=== PATIENT | female | born 1930 | race Caucasian/White ===

== ENCOUNTER 2016-10-15 13:23 | Inpatient (IN) | payer MEDICARE, OTHER, MEDICAID ==
[~2016-10-15] VITALS: Ht 157.5 cm; Wt 63.0 kg
[~2016-10-15 13:23] MED LIST: ACETAMINOPHEN325 MG PO; ARICEPT10 MG PO; AZOR 5-40 MG TA1 TAB PO; K-TAB10 MEQ PO; LASIX40 MG PO; NAMENDA10 MG PO; PLAVIX75 MG PO; PRAVACHOL40 MG PO; SEROQUEL25 MG PO; TOPROL XL100 MG PO; VESICARE5 MG PO; ZANTAC150 MG PO
[2016-10-15 16:43] LABS: BASOPHILS 0.2 % (0-2); HEMATOCRIT 32.2 % (36.0-48.0); HEMOGLOBIN 10.6 g/dL (12-16); LYMPHOCYTES 12.4 % (15-50); MCH 30.6 pg (26.0-34.0); MCHC 32.9 g/dL (31.0-37.0); MCV 93.1 fL (80.0-100.0); MEAN PLATELET VOLUME 11.5 fL (7.4-10.4); MONOCYTES 6.6 % (2-11); NEUTROPHILS 78.8 % (40-80); RBC 3.46 10x6/uL (4.00-5.40); RDW 13.1 % (11.5-14.5); WBC 11.4 10x3/uL (4.8-10.8)
[2016-10-15 16:45] LABS: PLATELET COUNT 255 10x3/uL (130-400)
[2016-10-15 16:59] LABS: ALBUMIN 2.9 g/dL (3.4-5.0); ANION GAP 18.7 mmol/L (8-16); BILIRUBIN - TOTAL 1.83 mg/dL (0.2-1.3); CARBON DIOXIDE 24.1 mmol/L (21.0-32.0); CREATININE - SERUM 2.6 mg/dL (0.6-1.3); POTASSIUM - SERUM 3.8 mmol/L (3.5-5.1); PROTEIN - SERUM 7.3 g/dL (6.4-8.2)
[2016-10-15 17:22] LABS: APPEARANCE HAZY (CLEAR); BILIRUBIN NEGATIVE (NEGATIVE); COLOR YELLOW (YELLOW); GLUCOSE NEGATIVE (NEGATIVE); KETONE NEGATIVE (NEGATIVE); LEUKOCYTE ESTERASE 1+ (NEGATIVE); NITRITE NEGATIVE (NEGATIVE); PROTEIN NEGATIVE (NEGATIVE); SPECIFIC GRAVITY 1.015 (1.005-1.020); UROBILINOGEN NORMAL (NORMAL)
[2016-10-15 17:24] LABS: BACTERIA MANY /hpf (NONE SEEN); HYALINE CAST 0-5 /lpf (NONE SEEN); RED CELLS - URINE 0-5 /hpf (0-5); WHITE CELLS - URINE 25-50 /hpf (0-5)
[2016-10-15 19:00] VITALS: BP 172/68
--- NOTE | 2016-10-15 20:30 | NUR ---
PT. ARRIVED VIA W/C WITH PIPE TESTER IN ATTENDANCE. REPORT RECEIVED. FAMILY TO STAY NIGHT WITH PT. PT. PLACED IN BED, GOWNED AND SKIN ASSESSED WITH NO ABNORMAL SKIN FINDINGS. CALL LIGHT WITHIN REACH.
[2016-10-15 22:15] VITALS: BP 172/68; BMI 25.5
[2016-10-15] MEDS ORDERED: BUMEX 1 MG TAB1 MG PO (22:49)
[2016-10-15] MEDS ORDERED: RELAFEN500 MG PO (22:50)
[2016-10-15] MEDS ORDERED: FISH OIL 1,0001 CA1 PO (22:52)
[2016-10-15] MEDS ORDERED: DESERYL100 MG PO (22:53)
[2016-10-15] MEDS ORDERED: ZOLOFT100 MG PO (22:54)
[2016-10-15] MEDS ORDERED: ACETAMINOPHEN325 MG PO (22:55)
[2016-10-15] MEDS ORDERED: ELOCON45 GM TOPICAL (22:56)
[2016-10-15] MEDS ORDERED: ATIVAN0.5 MG PO (22:57)
--- NOTE | 2016-10-15 23:22 | NUR ---
PERIPHERAL IV STARTED PER SALLIE CERVANTES WITH 1 STICK WITH 22GA ANGIOCATH. PT. TOLERATED PROCEDURE WITHOUT ANY C/O.
--- NOTE | 2016-10-16 03:03 | NUR ---
PT. IN BED WITH HOB UP FOR COMFORT LYING ON HER LEFT SIDE. EYES CLOSED AND RESP. EVEN. IV INFUSING VIA PUMP AT 75CC/HR OF 0.9%N.S. WITHOUT PROBLEMS. SON IN ROOM WITH PT. AND CALL LIGHT WITHIN REACH.
[2016-10-16 04:00] VITALS: BP 155/64
--- NOTE | 2016-10-16 06:12 | NUR ---
PT. IN BED WITH HOB UP FOR COMFORT. PT. AWAKE AND TALKS ALMOST CONTINUOUSLY. SON AT BEDSIDE. NO VOICED NEEDS AT THIS TIME. IV INFUSING AT 75CC/HR OF 0.9%NS AT PT'S LEFT FOREARM. CALL LIGHT WITHIN REACH.
[2016-10-16 08:00] VITALS: BP 147/67
--- NOTE | 2016-10-16 08:26 | NUR ---
PT RESTING IN BED WITH EYES OPEN CALL LIGHT IN REACH WILL MONITER
[2016-10-16 10:13] LABS: BASOPHILS 0.1 % (0-2); EOSINOPHILS 1.6 % (0-7); HEMATOCRIT 29.7 % (36.0-48.0); HEMOGLOBIN 9.8 g/dL (12-16); IMMATURE GRANULOCYTES 0.7 % (0-5); LYMPHOCYTES 8.9 % (15-50); MCH 30.7 pg (26.0-34.0); MCV 93.1 fL (80.0-100.0); MONOCYTES 5.8 % (2-11); NEUTROPHILS 82.9 % (40-80); PLATELET COUNT 214 10x3/uL (130-400); RBC 3.19 10x6/uL (4.00-5.40); WBC 8.7 10x3/uL (4.8-10.8)
[2016-10-16 10:25] LABS: ALBUMIN 2.7 g/dL (3.4-5.0); ANION GAP 17.2 mmol/L (8-16); BILIRUBIN - TOTAL 1.12 mg/dL (0.2-1.3); CALCIUM 8.4 mg/dL (8.5-10.1); CARBON DIOXIDE 24.6 mmol/L (21.0-32.0); CREATININE - SERUM 2.2 mg/dL (0.6-1.3); POTASSIUM - SERUM 3.8 mmol/L (3.5-5.1); PROTEIN - SERUM 6.1 g/dL (6.4-8.2)
[2016-10-16 12:00] VITALS: BP 192/55
--- NOTE | 2016-10-16 12:53 | NUR ---
PT RESTING IN BED WITH EYES OPEN CALL LIGHT IN REACH WILL MONITER
[2016-10-16 14:07] VITALS: Ht 157.5 cm; Wt 63.0 kg
[2016-10-16 16:00] VITALS: BP 192/79
--- NOTE | 2016-10-16 16:33 | NUR ---
SCD'S ON BILATERAL LE
--- NOTE | 2016-10-16 19:10 | NUR ---
REC REPORT, ASSUMED CARE OF PATIENT. AWAKE ALERT, SMILING. SOME CONFUSION NOTED, BUT PLEASANT. IV IN L FA INTACT WITH NS INFUSING AT 75 ML/HR. FAMILY MEMBER PRESENT IN ROOM. STATED THEY WOULD BE LEAVING FOR A FEW MINUTES. LEFT DOOR OPEN TO MONITOR CLOSELY.
[2016-10-16 20:00] VITALS: BP 185/52
--- NOTE | 2016-10-17 06:44 | NUR ---
RESTING QUIETLY WITH EYES CLOSED. NO S/S OF DISTRESS OR DISCOMFORT. FAMILY MEMBER PRESENT IN ROOM.
--- NOTE | 2016-10-17 07:30 | NUR ---
AM ROUNDS- PT IN BED, WITH EYES CLOSED, CAREGIVER AT BEDSIDE. LT FA IV INFUSING NS AT 75. BED LOW AND WHEELS LOCKED. BEDSIDE RAILS X2, CALL LIGHT IN REACH, NAD NOTED, WILL CONTINUE TO MONITOR.
--- NOTE | 2016-10-17 09:55 | NUR ---
TRIED TO ADMINISTERED MORNING MEDS PT REFUSED TO TAKE THEM AT THIS TIME. FAMILY AT BEDSIDE TRIED TO GET HER TO TAKE AND PT SCREAMING " LEAVE ME ALONE. GET OUT". PT BEING COMBATIVE, TRYING TO HIT. ALSO REFUSED FOR ROUSTABOUT PUSHER TO TAKE VITAL THIS AM. CALL LIGHT IN REACH, NAD NOTED, WILL CONTINUE TO MONITOR.
--- NOTE | 2016-10-17 10:45 | NUR ---
LINEN CHANGE PROVIDED AT THIS TIME. PT VERY COMBATIVE, TRYING TO HIT FUEL PILOT ENGINEER AND I. TOOK THREE PEOPLE TO GET HER CLEANED UP AND LINEN CHANGE. PT STATING " I AM GOING TO KILL YOU, I WILL BRAKE YOUR GLASSES AND MAKE SURE YOU ARE REAL . WILL HIT YOU ACROSS THE HEAD". CALL LIGHT IN REACH, FAMILY NOW AT BEDSIDE, NAD NOTED, WILL CONTINUE TO MONITOR.
--- NOTE | 2016-10-17 12:13 | NUR ---
PT BEING COMBATIVE, PT REFUSED TO HAVE BLOOD DRAW THIS AM. MARCOS PALMA ORDERED HALDO TO BE GIVEN. 1MG OF HALDO GIVEN TO RIGHT DORSOLGLUTEAL. PT TOLERATED PROCEDURE WELL.
[2016-10-17 12:56] LABS: ANION GAP 10.9 mmol/L (8-16); CALCIUM 8.8 mg/dL (8.5-10.1); CARBON DIOXIDE 28.1 mmol/L (21.0-32.0); CREATININE - SERUM 1.8 mg/dL (0.6-1.3)
--- NOTE | 2016-10-17 13:55 | NUR ---
RECEIVED CALL FROM PT'S SON WHO STATED THAT HIS AND HIM COULD NOT COME TO STAY WITH PT. THAT YESTEREDAY'S NURSE TOLD THEM THAT THEY DID NOT NEED TO STAY UP HERE WITH PT. SISTER ZORA CONCERN THAT PT IS NOT GOING TO BE OKAY BEING ALONE IN ROOM. ALSO VERY CONCERN ABOUT DR. MANCILLA MENTIONING HOSPICE. INFOMRED ZORA THAT PT WOULD BE OKAY, NOW THAT WE ADMINISTERED HALDO AND THAT WE WOULD PLACE BOX ALARM ON PT TO LET US KNOW WHEN SHE IS TRYING TO GET OUT OF BED. ZORA PROVIDED WITH HER PHONE NUMBER AND HER OTHER SISTER'S NUMBER. ZORA [phone]. CAITLYN [phone] WILL NOFIY ZORA WITH ANY CONCERNS. PT IN BED, WITH EYES CLOSED, CALL LIGHT IN REACH, NAD NOTED, BOX ALARM ON, WILL CONTINUE TO MONITOR.
--- NOTE | 2016-10-17 16:03 | NUR ---
PT IN BED, WITH EYES CLOSED, SISTER AT BEDSIDE, NAD NOTED, CALL LIGHT IN REACH, BOX ALARM ATTACHED TO PT, WILL CONTINUE TO MONITOR.
[2016-10-17 16:40] VITALS: BP 188/63
--- NOTE | 2016-10-17 16:47 | NUR ---
PT SISTER SYDNI AT BEDSIDE IS FIXING TO HEAD HOME FOR THE NIGHT, LEFT PHONE NUMBER IN CASE PT GETS RESTLESS DURING THE NIGHT, SHE CAN COME AND STAY WITH PT. IF NO ONE ANSWERS PHONE OK TO LEAVE MSG. PT IN BED, WITH EYES CLOSED, CALL LIGHT IN REACH, BOX ALARM ATTACHED TO PT, NAD NOTED, WILL CONTINUE TO MONITOR.
[2016-10-17 19:00] VITALS: BP 167/56
--- NOTE | 2016-10-17 19:38 | NUR ---
PT RECEIVED IN BED WITH EYES CLOSED AND CHEST RISING. NO SIGN/SYMPTOMS OF DISTRESSS NOTED. AROUSED TO VERBAL STIMULI. NO COMBATIVNESS NOTED AT THIS TIME. CALL LIGHT IN REACH.
--- NOTE | 2016-10-17 19:51 | NUR ---
LATE ENTRY 1315 CM RECEIVED REQUEST FOR CLARIFICATION OF CODE STATUS AND HOSPICE EVALUATION. PATIENT IS A RESIDENT AT [facility]. TC TO PATIENT' SON, LUCI WILKES. MR HAYS STATES THE PATIENT IS A FULL CODE. HE IS NOT INTERESTED IN HOSPICE CARE AT THIS TIME. HE WILL CONSIDER SPEAKING WITH THE HOSPICE NURSE TO OBTAIN INFORMATION. CM LEFT A [facility] CARD AT THE BEDSIDE ON PATIENT'S BULL[place] BOARD. THE [facility] NURSE WAS ON SITE FOR 2 OTHER CONSULTS. SHE WILL AWAIT SON' CONTACT. ONE OF PATIENT'S 7 SISTERS WAS AT THE BEDSIDE WHEN CM PLACED THE CARD ON THE BULLENT[place] BOARD. SHE WANTED TO SPEAK WITH THE NURSE. CM ADVISED MICHELLE, FROM [facility] OF THE REQUEST. SHE DID SPEAK WITH MICHELLE. THE FAMILY PLANS TO SPEAK WITH THE SON.
--- NOTE | 2016-10-17 23:15 | NUR ---
PT IN BED WITH EYES CLOSED AND CHEST RISING. EASILY AROUSED TO VERBAL STIMULI. NO EPISODE OF COMBATIVENESS NOTED AT THIS TIME. CALL LIGHT IN REACH.
--- NOTE | 2016-10-18 02:31 | NUR ---
PT IN BED WITH EYES CLOSED AND CHEST RISING. NO SIGN/SYMPTOMS OF DISTRESS NOTED. NO COMBATIVENESS NOTED AT THIS TIME. CALL LIGHT IN REACH.
--- NOTE | 2016-10-18 04:24 | NUR ---
PT IN BED WITH EYES CLOSED AND CHEST RISING. NO CONCERNS NOTED. CALL LIGHT IN REACH.
[2016-10-18 05:00] VITALS: BP 140/64
--- NOTE | 2016-10-18 06:37 | NUR ---
PT IN BED WITH EYES CLOSED AND CHEST RISING. RESPIRATIONS EVEN AND UNLABORED. NO BEHAVIORS NOTED. CALL LIGHT IN REACH.
[2016-10-18 06:42] LABS: BASOPHILS 0.3 % (0-2); EOSINOPHILS 2.3 % (0-7); HEMATOCRIT 31.8 % (36.0-48.0); HEMOGLOBIN 10.4 g/dL (12-16); IMMATURE GRANULOCYTES 0.8 % (0-5); LYMPHOCYTES 16.4 % (15-50); MCH 30.6 pg (26.0-34.0); MCHC 32.7 g/dL (31.0-37.0); MCV 93.5 fL (80.0-100.0); MEAN PLATELET VOLUME 10.9 fL (7.4-10.4); MONOCYTES 8.4 % (2-11); NEUTROPHILS 71.8 % (40-80); PLATELET COUNT 212 10x3/uL (130-400)
[2016-10-18 06:50] LABS: ANION GAP 14.7 mmol/L (8-16); CALCIUM 8.6 mg/dL (8.5-10.1); CARBON DIOXIDE 25.1 mmol/L (21.0-32.0); CREATININE - SERUM 1.8 mg/dL (0.6-1.3); POTASSIUM - SERUM 3.8 mmol/L (3.5-5.1)
--- NOTE | 2016-10-18 07:45 | NUR ---
AM ROUNDING COMPLETED. PT RESTING IN BED WITH EYES CLOSED AT THIS TIME. NO S/S OF DISTRESS OR ANY CURRENT NEEDS NOTED AT THIS TIME. CL IN REACH, BED IN LOWEST, SIDE RAILS X2 AND BUILT IN BED ALARM ON. WILL CPOC.
[2016-10-18 08:16] VITALS: BP 163/62
--- NOTE | 2016-10-18 09:00 | NUR ---
UPON TRYING TO PASS MORNING MEDS PT AGREED AND SLOWLY SWALLOWED ALL OF HER MORNING MEDICATIONS WITHOUT ANY DIFFICULTIES NOTED. PT ALLOWED ME TO DO SHIFT ASSESSMENT WELL. APPARENTLY PT HAS BEEN COMBATIVE BUT TODAY IS BEING VERY COOPERATIVE AND PLEASANT JUST TALKING SHORT AND MINIMAL. NO FURTHER NEEDS NOTED AT THIS TIME PT WOULD LIKE TO GO BACK TO SLEEP. PT REFUSED TO EAT BREAKFAST. BED IN LOWEST, SIDE RAILS X2, CL IN REACH AND REORIENTED PT TO ROOM AND CL. PT VERBALIZED UNDERSTANDING TO CALL FOR ANY NEEDED ASSISTANCE. BUILT IN BED ALARM ON. WILL CPOC.
--- NOTE | 2016-10-18 11:28 | NUR ---
PT LYING BACK IN BED RESTING QUIETLY WITH FAMILY MEMBER AT BEDSIDE. PT DENIES ANY CURRENT PAIN OR NEEDS. CL IN REACH, BED IN LOWEST, SIDE RAILS X2. WILL CPOC.
--- NOTE | 2016-10-18 11:52 | NUR ---
PT C/O HER BED BEING WET AND STATED IT WAS WET WHEN SHE WAS PUT IN IT. PT CLEARLY CONFUSED ABOUT THIS. PT AGREED TO ALLOW ME TO CLEAN HER UP. NENA ARMSTRONG ASSISTED ME WITH BED BATH AND CHANGED OUT ALL LINENS FOR PT. PT BEING VERY COOPERATIVE AND GRATEFUL FOR HER WARM CLEAN BED. ENCOURAGED PT TO CALL ANYTIME IT GETS WET SO WE CAN CHANGE IT FOR HER. PT HASNT EATEN ALL DAY AND APPARENTLY YESTERDAY EITHER. ENCOURAGED PT TO PLEASE TRY AND EAT TODAY AND PT STATED SHE WILL AT LEAST TRY FOR ME SO SHE CAN GO HOME. FAMILY AT BEDSIDE AND VERY APPRICIATIVE. CL IN REACH, BED IN LOWEST, SIDE RAILS X2. WILL CPOC.
[2016-10-18 11:59] VITALS: BP 159/50
[2016-10-18 16:05] VITALS: BP 152/53
[2016-10-18 19:00] VITALS: BP 150/57
--- NOTE | 2016-10-18 20:36 | NUR ---
HS MEDS GIVEN WITH FRESH WATER, PT DENIES PAIN OR NEEDS, BED LOW, CL IN REACH, BOX ALARM IN USE.
--- NOTE | 2016-10-19 00:36 | NUR ---
RESTING WITH EYES CLOSED, RESPERATIONS EVEN, NO S/S DISTRESS NOTED.
--- NOTE | 2016-10-19 01:06 | NUR ---
CALL LIGHT IN REACH, WILL CONTINUE WITH PLAN OF CARE.
[2016-10-19 04:00] VITALS: BP 126/52
[2016-10-19] MEDS ORDERED: LEVAQUIN500 MG PO (07:35)
[2016-10-19] MEDS ORDERED: MACRODANTIN100 MG PO (07:40)
[2016-10-19 08:00] VITALS: BP 158/59
--- NOTE | 2016-10-19 09:53 | NUR ---
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 CM PROVIDED AND DISCUSSED IMPORTANT MESSAGE FROM MEDICARE, PT FORGOT HOW TO SPELL HER LAST NAME. PT DENIES NEEDS. CM SPOKE TO PT'S BEDSIDE NURSE WHO REPORTED SPEAKING TO PT'S SON WHO WILL GET OFF FROM WORK AT NOON TODAY, PICK PT UP AND TRANSPORT BACK TO [facility]. 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 CM NOTIFIED OF TRANSPORTATION ARRANGEMENTS PER BEDSIDE NURSE. CM FAXED DISCHARGE INFORMATION TO [facility] AT [phone]. NURSE REPORT TO BE CALLED TO [facility], ; PT'S SON TO AUTO GARAGE MECHANIC PT AFTER LUNCH TODAY FOR TRANSPORT BACK TO [facility]. Nicholas Santiago, CASE MANAGEMENT
--- NOTE | 2016-10-19 12:35 | NUR ---
ALERT AND ORIENTED X4. SON ARRIVES TO TRANSPORT BACK TO LONG TERM. ASSIST DRESSING. ASSIST TO HOME WHEELCHAIR. DISCHARGE INSTRUCTIONS SIGNED ON CHART. DC LT AC IV TIP INTACT. ESCORT TO RIDE VIA WHEELCHAIR. REMAINS FREE FROM INJURY.
[2016-10-24 19:08] LABS: AEROBE ID Final report (())
== END 2016-10-19 12:39 | DRG 683 ==
LOC: D.ER 13:23 → D.M2 19:08
PROVIDERS: Emergency Medicine; Family Medicine; Internal Medicine Nephrology; ADMIT Family Medicine
DX: N17.9 Acute kidney failure, unspecified (principal); N39.0 Urinary tract infection, site not specified; I13.0 Hypertensive heart and chronic kidney disease with heart failure and stage 1 through stage 4 chronic kidney disease, or unspecified chronic kidney disease; F02.81 Dementia in other diseases classified elsewhere, unspecified severity, with behavioral disturbance; I50.22 Chronic systolic (congestive) heart failure; N18.9 Chronic kidney disease, unspecified; E86.0 Dehydration; I25.10 Atherosclerotic heart disease of native coronary artery without angina pectoris; E78.5 Hyperlipidemia, unspecified; G30.9 Alzheimer's disease, unspecified

== ENCOUNTER 2016-10-24 14:38 | Inpatient (IN) | payer MEDICARE, OTHER, MEDICAID ==
[~2016-10-24] VITALS: Ht 162.6 cm; Wt 54.4 kg
--- NOTE | ~2016-10-24 | DS ---
PATIENT:BASILIO PINEDO :[birth year] MEDICAL RECORD: [id number] DISCHARGE SUMMARY ADMISSION DATE: 10/24/16 DISCHARGE DATE: DATE OF ADMISSION: 10/24/2016. DATE OF DISCHARGE: 11/03/2016. CONDITION ON DISCHARGE: Improved. ADMITTING DIAGNOSES: Urinary tract infection, hypertension, Alzheimer's, chronic kidney disease. DISCHARGE DIAGNOSES: Urinary tract infection, hypertension, Alzheimer's, chronic kidney disease. HOSPITAL COURSE: The patient is an 86-year-old female who resides at a local fpc. She had been hospitalized couple of weeks prior to this admission, presented to the Emergency Room with elevated white count, weakness, nausea and vomiting. She lives at [facility]. PHYSICAL EXAMINATION: VITAL SIGNS: The patient's temperature was 98, her pulse 72, respirations 18, her blood pressure was low at 83/63, pulse ox 92 on room air. GENERAL: The patient was awake. She was alert. She was disoriented. She was oriented to person only. HEENT: Unremarkable. HEART: Had a regular rate. LUNGS: Clear. She has suprapubic tenderness present. LABORATORY DATA: This patient had a BUN of 68, creatinine was 4.2. White count was elevated at 13.1. She had urine cultures obtained as well as blood cultures. The urine cultures reveal E. coli, 2 separate species that was ESBL positive. There was no oral antibiotics that the organism were susceptible to. They were susceptible to Merrem. Merrem has to be given either twice daily or t.i.d. group home was contacted and the possibility of transferring the patient back for completion of 10-day course of Merrem, but fpc states they could only use a Merrem once daily, was felt the patient should complete her 10-day course of b.i.d. Merrem in the hospital. On the , the patient had completed her 10-day course. Her white count was 4.5, hemoglobin 8, hematocrit 26.7. Her sodium was 142, potassium 4, chloride 107, CO2 was 29, BUN was 15, creatinine was 1.3. The patient was stable. It was felt she could be discharged. DISCHARGE MEDICATIONS: Included Plavix 75 mg once a day, pravastatin 40 mg p.o. q.h.s., VESIcare 5 mg p.o. every day, Seroquel 25 mg p.o. bedtime, Tylenol 650 mg p.o. every day, Zantac 75 mg p.o. b.i.d., Aricept 10 mg p.o. q.h.s. She was on Mary 5/40 1 p.o. every day, metoprolol 50 mg p.o. b.i.d., Namenda 10 mg p.o. b.i.d., Bumex 1 mg p.o. daily along with KCl 10 mEq 1 p.o. every day, omega 3 one capsule daily, Desyrel 25 mg p.o. q.h.s., Zoloft 100 mg once a day, Ativan 0.5 every 8 hours p.r.n. anxiety. The patient was discharged back to the fpc via ambulance. She would be cared for by the local MD at the fpc. TRANSINT:[id number] Voice Confirmation ID: [id number] DOCUMENT ID: [id number] DISCHARGE SUMMARY REPORT [id number] BASILIO PINEDO JAMES MD CC: [id number] DICTATION DATE: 11/03/16 07 SPRAGGER: 11/03/16 08 ADM IN [facility] [address] [place] [address]
[~2016-10-24 14:38] MED LIST changes: +ATIVAN0.5 MG PO; +BUMEX 1 MG TAB1 MG PO; +DESERYL100 MG PO; +ELOCON45 GM TOPICAL; +FISH OIL 1,0001 CA1 PO; +LEVAQUIN500 MG PO; +MACRODANTIN100 MG PO; +RELAFEN500 MG PO; +ZOLOFT100 MG PO
[2016-10-24 15:41] LABS: APPEARANCE HAZY (CLEAR); BILIRUBIN NEGATIVE (NEGATIVE); COLOR YELLOW (YELLOW); GLUCOSE NEGATIVE (NEGATIVE); KETONE NEGATIVE (NEGATIVE); LEUKOCYTE ESTERASE 2+ (NEGATIVE); NITRITE POSITIVE (NEGATIVE); PROTEIN NEGATIVE (NEGATIVE); SPECIFIC GRAVITY 1.015 (1.005-1.020); UROBILINOGEN NORMAL (NORMAL)
[2016-10-24 15:43] LABS: BACTERIA MODERATE /hpf (NONE SEEN); RED CELLS - URINE NONE SEEN /hpf (0-5); WHITE CELLS - URINE >50 /hpf (0-5)
[2016-10-24 15:49] LABS: BASOPHILS 0.2 % (0-2); EOSINOPHILS 0.1 % (0-7); HEMATOCRIT 32.6 % (36.0-48.0); HEMOGLOBIN 10.5 g/dL (12-16); IMMATURE GRANULOCYTES 0.5 % (0-5); LYMPHOCYTES 7.8 % (15-50); MCH 30.3 pg (26.0-34.0); MCHC 32.2 g/dL (31.0-37.0); MCV 94.2 fL (80.0-100.0); MEAN PLATELET VOLUME 11.6 fL (7.4-10.4); MONOCYTES 4.6 % (2-11); NEUTROPHILS 86.8 % (40-80); PLATELET COUNT 216 10x3/uL (130-400); RBC 3.46 10x6/uL (4.00-5.40); RDW 13.4 % (11.5-14.5); WBC 13.1 10x3/uL (4.8-10.8)
[2016-10-24 16:06] LABS: ALBUMIN 3.2 g/dL (3.4-5.0); ALKALINE PHOSPHATASE 79 U/L (46-116); ALT (SGPT) 24 U/L (10-68); BILIRUBIN - TOTAL 0.49 mg/dL (0.2-1.3); CALC OSMOLALITY 298 mosm/kg (275-300); CALCIUM 8.7 mg/dL (8.5-10.1); CARBON DIOXIDE 24.4 mmol/L (21.0-32.0); CHLORIDE - SERUM 102 mmol/L (98-107); CREATININE - SERUM 4.2 mg/dL (0.6-1.3); GLUCOSE 159 mg/dL (74-106); POTASSIUM - SERUM 5.2 mmol/L (3.5-5.1); PROTEIN - SERUM 6.6 g/dL (6.4-8.2); SODIUM 138 mmol/L (136-145); UREA NITROGEN 68 mg/dL (7-18); eGFR NON AFRICAN AMERICAN 11 mL/min (90-120)
[2016-10-24 16:14] LABS: PRO BNP 4070 pg/mL (0-450); TROPONIN-I < 0.017 ng/mL (0.000-0.060)
--- NOTE | 2016-10-24 19:23 | NUR ---
PT ARRIVED TO ROOM VIA BED WITH ER STAFF. PT STATES SHE IS COLD. RESP TECH IN ROOM FOR BREATHING TREATMENT. WILL ADMIT.
[2016-10-24 19:24] VITALS: BP 83/63; BMI 20.6
--- NOTE | 2016-10-24 19:54 | NUR ---
PT RESTING IN BED SISTER AT BEDSIDE. PT DENIES ANY NEEDS AT THIS TIME BED LOW AND CALLLIGHT IN REACH. NO S/S OF DISTRESS. WILL CONTINUE TO MONTIOR
--- NOTE | 2016-10-24 20:24 | NUR ---
A BED ALARM PLACED ON PT FOR SAFTEY R/T DEMENTIA. WILL CONTINUE TO MONITOR PT. SISTER STILL AT BEDSIDE BUT STATES SHE IS LEAVING. NO S/S OF DISTRESS. BED LOW CALLLIGHT WITHIN REACH. BED ALARM HOOKED TO PT GOWN. WILL CONTINUE TO MONITOR
[2016-10-25] VITALS: BP 119/41
[2016-10-25 04:00] VITALS: BP 120/37
--- NOTE | 2016-10-25 05:17 | NUR ---
PT CLEANED INCONT OF URINE. DRY LINEN AND GOWN. PT IS STILL CONFUSED. BEDALARM IS ON. BED LOW CALL LIGHT WITHIN REACH. PT FELL ASLEEP. RESPIRATIONS EVEN AND UNLABORED. WILL CONTINUE TO MONIOR
[2016-10-25 05:28] LABS: BASOPHILS 0.2 % (0-2); EOSINOPHILS 0.6 % (0-7); HEMATOCRIT 27.9 % (36.0-48.0); IMMATURE GRANULOCYTES 0.2 % (0-5); LYMPHOCYTES 9.7 % (15-50); MCH 30.4 pg (26.0-34.0); MCHC 32.3 g/dL (31.0-37.0); MCV 94.3 fL (80.0-100.0); MEAN PLATELET VOLUME 11.8 fL (7.4-10.4); MONOCYTES 9.8 % (2-11); NEUTROPHILS 79.5 % (40-80); RBC 2.96 10x6/uL (4.00-5.40); RDW 13.5 % (11.5-14.5)
[2016-10-25 05:29] LABS: PLATELET COUNT 146 10x3/uL (130-400); WBC 8.4 10x3/uL (4.8-10.8)
[2016-10-25 05:41] LABS: ANION GAP 15.1 mmol/L (8-16); CALCIUM 8.2 mg/dL (8.5-10.1); CARBON DIOXIDE 23.2 mmol/L (21.0-32.0); CREATININE - SERUM 3.8 mg/dL (0.6-1.3)
[2016-10-25 05:42] LABS: POTASSIUM - SERUM 4.3 mmol/L (3.5-5.1)
--- NOTE | 2016-10-25 07:56 | NUR ---
AM ROUNDS - PT IN BED AND APPEARS TO BE SLEEPING WITH EQUAL AND NON LABORED BREATHING. O2 AT 2L VIA NC. IV TO RIGHT WRIST, NS 75CC/HR. BOX ALARM ATTACHED. BED AT LOWEST POSITION. CALL ORTIZ IN USE/REACH. SIDE RAILS UP X2. WILL CONTINUE TO MONITOR.
[2016-10-25 08:00] VITALS: BP 132/41
[2016-10-25 12:00] VITALS: BP 113/28
[2016-10-25 16:00] VITALS: BP 137/48
[2016-10-25 20:00] VITALS: BP 123/49
[2016-10-26] VITALS: BP 140/107
--- NOTE | 2016-10-26 03:37 | NUR ---
2000)REC'D. SITTING ON SIDE OF BED PLEASANTLY CONFUSED.ASSISTED BACK TO BED.SCD'S REAPPLIED.BOX ALARM INTACT STRING SHORTENED.INCONTINENT OF URINE.MAURICE-CARE GIVEN. WILL CONTINUE TO MONITOR FOR ANY CHGES AND FOLLOW CURRENT PLAN OF CARE
[2016-10-26 05:27] LABS: BASOPHILS 0.4 % (0-2); EOSINOPHILS 1.7 % (0-7); HEMATOCRIT 26.5 % (36.0-48.0); HEMOGLOBIN 8.3 g/dL (12-16); IMMATURE GRANULOCYTES 0.4 % (0-5); LYMPHOCYTES 14.4 % (15-50); MCH 29.9 pg (26.0-34.0); MCHC 31.3 g/dL (31.0-37.0); MCV 95.3 fL (80.0-100.0); MONOCYTES 10.6 % (2-11); NEUTROPHILS 72.5 % (40-80); RBC 2.78 10x6/uL (4.00-5.40); RDW 13.4 % (11.5-14.5)
[2016-10-26 05:29] LABS: PLATELET COUNT 114 10x3/uL (130-400); WBC 4.8 10x3/uL (4.8-10.8)
[2016-10-26 05:44] LABS: ANION GAP 13.9 mmol/L (8-16); CARBON DIOXIDE 24.8 mmol/L (21.0-32.0); MAGNESIUM - SERUM 1.5 mg/dL (1.8-2.4); PHOSPHOROUS 4.1 mg/dL (2.5-4.9); POTASSIUM - SERUM 4.7 mmol/L (3.5-5.1)
[2016-10-26 05:45] LABS: CREATININE - SERUM 2.7 mg/dL (0.6-1.3)
[2016-10-26 07:54] LABS: % SATURATION 27 % (15-55); IRON 48 ug/dl (35-150); TOTAL IRON BIND CAPACITY 177 ug/dl (260-445); UNSAT IRON BIND CAPACITY 129 ug/dl (150-375)
[2016-10-26 07:55] LABS: T4 THYROXINE 3.5 ug/dL (4.7-13.3); THYROID STIMULATING HORMONE 0.35 uIU/mL (0.36-3.74)
[2016-10-26 08:00] VITALS: BP 157/85
--- NOTE | 2016-10-26 08:25 | NUR ---
0715- AM ROUNDING- RECEIVED REPORT FROM SENIOR PYTHON DEVELOPER NURSE YOSELIN. PT IS CURRENTLY LAYING IN BED ON BACK WITH EYES CLOSED RESTING. PT MUMBLES WORDS AT TIMES. SISTER IS AT BEDSIDE. PT APPEARS TO BE CONFUSED (HX DEMENTIA). ON 02 AT 2L VIA NC. NO MONITOR. IV SEEN TO RIGHT WRIST WITH NS RUNNING AT 30CC. BED BOX ALARM IS ON AND ATTATCHED TO PT. BED IS IN LOW POSITION, SIDE RAILS ARE UP X2, AND CALL LIGHT IS IN REACH. WILL CONTINUE TO MONITOR AND CONTINUE WITH PLAN OF CARE.
[2016-10-26 12:00] VITALS: BP 109/61
[2016-10-26 12:47] VITALS: Ht 162.6 cm; Wt 54.4 kg
--- NOTE | 2016-10-26 14:25 | NUR ---
DR. MCMAHON OFFICE JUST CALLED TO INFORM ME THAT FAMILY STOPPED BY DR. MCMAHON OFFICE AND HAS DECIDED TO MAKE PT A DNR. TELEPHONE WITNESS BY SALLIE OLMEDO. WILL PUT DNR SHEET IN CHART FOR DR. MCMAHON TO SIGN WHEN MAKING ROUNDS.
[2016-10-26 16:00] VITALS: BP 147/46
--- NOTE | 2016-10-26 17:52 | NUR ---
1730- I WALKED INTO PTS ROOM AND NOTICED PTS DINNER TRAY IS AT BEDSIDE AND PT IS SLEEPING. I WOKE PT UP AND ENCOURAGED PT TO EAT AND DRINK. PT DID NOT WANT SANDWHICH BUT DID DRINK ALL OF HER VANILLA NEPRO SHAKE. PT STARTED EATING POUND CAKE WELL. NO NEED AT CURRENT TIME. BED BOX ALARM IS ON AND ATTATCHED TO PT, BED IS IN LOW POSITION, SIDE RAILS ARE UP X2, CALL LIGHT IS IN REACH, AND NON-SKID SOCKS ARE ON. WILL CONTINUE TO MONITOR.
[2016-10-26 20:00] VITALS: BP 114/38
--- NOTE | 2016-10-26 20:10 | NUR ---
REST IN BED, AND EAT APPLE SAUCE.
[2016-10-27] VITALS: BP 108/35
--- NOTE | 2016-10-27 01:55 | NUR ---
REST IN BED QUIETLY, CALL LIGHT WITHIN REACH.
--- NOTE | 2016-10-27 02:44 | NUR ---
RESTING IN BED WITH RESPS EVEN/NOLABORED. NO DISTRESS. CPOC.
[2016-10-27 04:00] VITALS: BP 166/85
[2016-10-27 04:37] LABS: BASOPHILS 0.4 % (0-2); EOSINOPHILS 1.7 % (0-7); HEMATOCRIT 27.3 % (36.0-48.0); HEMOGLOBIN 8.6 g/dL (12-16); IMMATURE GRANULOCYTES 0.4 % (0-5); LYMPHOCYTES 14.8 % (15-50); MCH 30.6 pg (26.0-34.0); MCHC 31.5 g/dL (31.0-37.0); MCV 97.2 fL (80.0-100.0); MEAN PLATELET VOLUME 11.5 fL (7.4-10.4); MONOCYTES 10.4 % (2-11); NEUTROPHILS 72.3 % (40-80); PLATELET COUNT 123 10x3/uL (130-400); RBC 2.81 10x6/uL (4.00-5.40); RDW 13.4 % (11.5-14.5); WBC 5.4 10x3/uL (4.8-10.8)
[2016-10-27 05:02] LABS: ANION GAP 11.9 mmol/L (8-16); CARBON DIOXIDE 26.3 mmol/L (21.0-32.0); CREATININE - SERUM 2.4 mg/dL (0.6-1.3); POTASSIUM - SERUM 4.2 mmol/L (3.5-5.1)
--- NOTE | 2016-10-27 07:45 | NUR ---
LYING IN BED ON LEFT SIDE. ALERT AND ORIENTED TO PERSON. SISTER AT BEDSIDE. OFFERS NO COMPLAINTS. NS @ 30ML/HR RIGHT WRIST. CONTINUES ON O2 @ 2L. WILL CONTINUE TO MONITOR
--- NOTE | 2016-10-27 09:40 | NUR ---
ADMINISTERED MORNING MED ONE AT A TIME WITHOUT DIFFICULTY. OFFERS NO COMPLAINTS. DENIES ANY PAIN. NO FAMILY AT BEDSIDE. CALL LIGHT IN REACH. BOX ALARM INTACT TO RIGHT SHOULDER. WILL CONTINUE TO MONITOR
[2016-10-27 11:00] VITALS: BP 153/49
[2016-10-27 12:43] VITALS: BP 118/35
--- NOTE | 2016-10-27 14:22 | NUR ---
PT IN BED, WITH EYES CLSOED, BED LOW AND WHEELS LOCKED, BEDRAILS X2, BED ALARM ON. CALL LIGHT IN REACH, NAD NOTED, WILL CONTINUE TO MONITOR.
[2016-10-27 16:50] VITALS: BP 139/93
--- NOTE | 2016-10-27 17:39 | NUR ---
IVPB MERREM HUNG AT THIS TIME. PT IN BED, DENIES ANY NEEDS AT THIS TIME. FAMILY AT BEDSIDE, CALL LIGHT IN REACH, BED ALARM ON, NAD NOTED, WILL CONTINUE TO MONITOR.
--- NOTE | 2016-10-27 19:18 | NUR ---
PT LYING IN BED, EYES CLOSED, RESPIRATIONS EVEN AND UNLABORED. CONTINUE TO MONITOR CLOSELY. BED LOW, CALL LIGHT IN REACH, SIDE RAILS X 2, HOB 25-30 DEGREES, BOX ALARM ON AND ATTACHED TO PT.
[2016-10-27 20:00] VITALS: BP 128/52
[2016-10-28] VITALS: BP 149/50
--- NOTE | 2016-10-28 00:32 | NUR ---
PT BATHED, LINENS AND GOWN CHANGED, RESTING COMFORTABLY. CONTINUE TO MONITOR CLOSELY.
[2016-10-28 04:00] VITALS: BP 132/57
--- NOTE | 2016-10-28 05:28 | NUR ---
PT RESTING COMFORTABLY, IN NO ACUTE DISTRESS, EASILY ROUSABLE TO VERBAL STIMULI. CONTINUE TO MONITOR CLOSELY.
--- NOTE | 2016-10-28 07:38 | NUR ---
AM ROUNDING- RECEIVED REPORT FROM RAIL TRANSPORTATION TABELER NURSE ANGEL. PT IS CURRENTLY LAYING IN BED ON RIGHT SIDE WITH EYES CLOSED RESTING. BED BOX ALARM IS ON AND ATTATCHED TO PT. PER REPORT PT IS CONFUSED. ON 02 AT 2L VIA NC. NO MONITOR. IV SEEN TO RIGHT WRIST WITH NS RUNNING AT 30CC. DNR PER ORDER. BED IS IN LOW POSITION, SIDE RAILS ARE UP X2, CALL LIGHT IS IN REACH, AND NON-SKID SOCKS ARE ON. NO NEED AT CURRENT TIME. WILL CONTINUE TO MONITOR AND AND CONTINUE WITH PLAN OF CARE.
[2016-10-28 08:00] VITALS: BP 99/68
--- NOTE | 2016-10-28 09:15 | NUR ---
Patient Name: BASILIO PINEDO Admission Status: ER Accout number: [id number] Admission Date: 10-24-2016 : 1930 Admission Diagnosis: Attending: LYNDA Current LOS: 2 Anticipated DC Date: Planned Disposition: Nursing Facility [facility] Cert Primary Insurance: MEDICARE A & B PLANNED EXTERNAL PROVIDER: [facility] LATE ENTRY, PT/FAMILY SEEN ON 10-26-16, 1547 HOURS Discharge Planning Comments: * Is the patient Alert and Oriented? No 0 * How many steps to enter\exit or inside your home? NONE 0 * PCP DR. GARCIA 0 * Pharmacy [facility] 0 * Preadmission Environment [facility] 0 * Facility Name [facility] 0 * ADLs Total Dependent 0 * Equipment Other 0 * Other Equipment ALL EQUIPMENT PROVIDED BY FACILITY 0 * List name and contact numbers for known caregivers / representatives who currently or will assist patient after discharge: LUCI PINEDO, SON/POA, RACHID PINEDO, SON, 0 * Community resources currently utilized None 0 * Please name any agencies selected above. NONE 0 * Additional services required to return to the preadmission environment? No 0 * Can the patient safely return to the preadmission environment? Yes 0 * Has this patient been hospitalized within the prior 30 days at any hospital? Yes 0 CM RECEIVED ORDER TO DISCUSS CODE STATUS WITH FAMILY. CM ATTEMPTED TO MEET WITH PT AND FAMILY. PT IS NOT RESPONSIVE TO CM, PT'S SISTERS REPORTED THAT PT'S TWO SONS ARE HERE BUT LEFT TO GO SEE DR. MCMAHON AND WILL BE BACK LATER. CM LEFT CM CONTACT INFORMATION IN ROOM. AFTER LUNCH, CM RECEIVED NOTE TO SEE PT'S FAMILY IN ROOM. CM MET WITH PT'S SON'S, RACHID AND LUCI IN ROOM. LUCI IS POA; THEY HAVE MET WITH DR. MCMAHON AND AGREE ON DNR FOR PATIENT. THEY DO NOT WANT HOSPICE AT THIS TIME. THEY HAVE PLANS FOR TREATMENT OF PT AND HOPEFULLY RETURN PT TO HER ROTOPRINTER CARE BED AT [facility]. BEDSIDE NURSE WAS ALREADY AWARE OF FAMILY'S WISH FOR PT TO BE DNR. CM FAXED HOSPITAL UPDATE TO [facility] AT [phone]. FOR RETURN TO RESIDENTIAL CARE AT DISCHARGE, NOTIFWilliam VALDES OF [facility], , FAX DISCHARGE INFORMATION TO [facility] AT [phone]. PT TO TRANSPORT VIA AMBULANCE. Automobile Salesman: Nicholas Santiago
--- NOTE | 2016-10-28 09:25 | NUR ---
Patient Name: BASILIO PINEDO Admission Status: ER Accout number: [id number] Admission Date: 10-24-2016 : 1930 Admission Diagnosis: Attending: LYNDA Current LOS: 4 Anticipated DC Date: 10-28-2016 Planned Disposition: Nursing Facility [facility] Cert Primary Insurance: MEDICARE A & B PLANNED EXTERNAL PROVIDER: [facility], [facility] MEDICAID BED DCP FOLLOW UP Comments: CM RECEIVED ORDER TO ARRANGE IV MERRUM AT [facility]. CM CALLED [facility], , SPOKE TO KEISHA, PROVIDED INFORMATION FOR CONSIDERATION; KEISHA REPORTS SHE IS UNSURE IF THIS CAN BE DONE WITH PIV / Q12 HOURS AND WILL CHECK WITH NURSING AND LET CM KNOW. CM FAXED REFERRAL INFORMATION TO [facility] AT [phone]. CM ATTEMPTED TO SPEAK TO FAMILY IN ROOM, NO FAMILY PRESENT, PT CONFUSED. CM CALLED PT'S SON / POA, LUCI PINEDO, , LEFT DETAILED MESSAGE WITH CM'S CONTACT NUMBER. CM WAITING DETERMINATION FROM [facility] REGARDING ABILITY TO PROVIDE IV ANTIBIOTICS ORDERED. Decision Analyst: Nicholas Santiago
[2016-10-28 12:00] VITALS: BP 121/43
[2016-10-28 13:09] LABS: ANION GAP 11.4 mmol/L (8-16); CALCIUM 8.2 mg/dL (8.5-10.1); CARBON DIOXIDE 26.2 mmol/L (21.0-32.0); CREATININE - SERUM 1.9 mg/dL (0.6-1.3); POTASSIUM - SERUM 4.6 mmol/L (3.5-5.1)
[2016-10-28 13:15] LABS: BASOPHILS 0.5 % (0-2); EOSINOPHILS 1.8 % (0-7); HEMOGLOBIN 9.2 g/dL (12-16); IMMATURE GRANULOCYTES 0.2 % (0-5); MCH 30.2 pg (26.0-34.0); MCHC 31.7 g/dL (31.0-37.0); MCV 95.1 fL (80.0-100.0); MEAN PLATELET VOLUME 11.5 fL (7.4-10.4); MONOCYTES 8.9 % (2-11); NEUTROPHILS 75.6 % (40-80); PLATELET COUNT 101 10x3/uL (130-400); RBC 3.05 10x6/uL (4.00-5.40); RDW 13.2 % (11.5-14.5); WBC 5.5 10x3/uL (4.8-10.8)
--- NOTE | 2016-10-28 13:28 | NUR ---
Nutrition follow-up: Diet: renal with very soft foods PO intake very poor. Labs reviewed Wt: 119# RDN ordered Ensure with meals RDN following.
[2016-10-28 16:00] VITALS: BP 146/59
--- NOTE | 2016-10-28 17:23 | NUR ---
ATTEMPTED TO FEED PT (DINNER TRAY AT BEDSIDE), PT REFUSED. BED BOX ALARM IS ON AND ATTATCHED TO PT, BED IS IN LOW POSITION, SIDE RAILS ARE UP X2, CALL LIGHT IS IN REACH, AND NON-SKID SOCKS ARE ON. WILL CONTINUE TO MONITOR.
--- NOTE | 2016-10-28 19:54 | NUR ---
PT RESTING COMFORTABLY, EASILY ROUSABLE TO VERBAL STIMULI, CONTINUE TO MONITOR CLOSELY. BED LOW, CALL LIGHT IN REACH, SIDE RAILS X 2, HOB 30 DEGREES, BOX ALARM ON AND ATTACHED TO PT.
--- NOTE | 2016-10-28 20:36 | NUR ---
DURING MED PASS, MANY ATTEMPTS MADE TO WAKE PT FOR MEDICATION ADMINISTRATION. PT AWAKENS IN AN AGITATED STATE, THREATENING TO HIT, AND REFUSES TO TAKE ANY MEDICATIONS AT THIS TIME. WILL FINISH MY INITIAL MEDICATION ROUNDS AND COME TO RETRY WITH THIS PATIENT. CONTINUE TO MONITOR CLOSELY.
--- NOTE | 2016-10-29 03:20 | NUR ---
PT BATHED, LINENS AND GOWN CHANGED, PT BECAME AGGRESSIVE, TRYING TO HIT BOLT MACHINE OPERATOR'S DOING HER BATH. PT HAS BEEN RESTING COMFORTABLY ALL SHIFT, AND HAS RETURNED TO QUIETLY RESTING SINCE HER BATH. CONTINUE TO MONITOR CLOSELY. BED LOW, CALL LIGHT IN REACH, SIDE RAILS X 2, HOB 30 DEGREES, BOX ALARM ATTACHED TO PT AND ON.
[2016-10-29 04:18] LABS: BASOPHILS 0.5 % (0-2); EOSINOPHILS 2.5 % (0-7); HEMATOCRIT 28.7 % (36.0-48.0); HEMOGLOBIN 9.3 g/dL (12-16); IMMATURE GRANULOCYTES 0.5 % (0-5); LYMPHOCYTES 12.5 % (15-50); MCH 30.9 pg (26.0-34.0); MCHC 32.4 g/dL (31.0-37.0); MCV 95.3 fL (80.0-100.0); MEAN PLATELET VOLUME 11.7 fL (7.4-10.4); MONOCYTES 11.1 % (2-11); NEUTROPHILS 72.9 % (40-80); PLATELET COUNT 109 10x3/uL (130-400); RBC 3.01 10x6/uL (4.00-5.40); RDW 13.4 % (11.5-14.5); WBC 4.4 10x3/uL (4.8-10.8)
[2016-10-29 04:44] LABS: ANION GAP 9.9 mmol/L (8-16); CALCIUM 8.2 mg/dL (8.5-10.1); CARBON DIOXIDE 28.7 mmol/L (21.0-32.0); CREATININE - SERUM 1.8 mg/dL (0.6-1.3); POTASSIUM - SERUM 4.6 mmol/L (3.5-5.1)
--- NOTE | 2016-10-29 07:29 | NUR ---
AM ROUNDING- RECEIVED REPORT FROM BIG DATA ENGINEER NURSE ANGEL. PT IS CURRENTLY LAYING IN BED ON LEFT SIDE WITH EYES CLOSED RESTING. DNR PER ORDER. ON 02 AT 2L VIA NC. NO MONITOR. IV SEEN TO RIGHT WRIST THAT IS NOW SALINE LOCKED PER ORDER. BED BOX ALARM IS ON AND ATTATCHED TO PT, BED IS IN LOW POSITION, SIDE RAILS ARE UP X2, CALL LIGHT IS IN REACH, AND NON-SKID SOCKS ARE ON. WILL CONTINUE TO MONITOR AND CONTINUE WITH PLAN OF CARE.
--- NOTE | 2016-10-29 08:37 | NUR ---
Patient Name: KISHORE HERRON Encounter No: [id number] : 01-06-1936 Primary Insurance: MEDICARE A & B Anticipated DC Date: 10-28-2016 Planned Disposition: Custodial Facility External Planned Provider: [facility]IC[facility] RE[facility] DCP follow-up note: ANISHA RECEIVED CALL FROM [facility], , SPOKE TO DANK WHO REPORTS RECEIVING REFERRAL LATE YESTERDAY EVENING AROUND 6PM. [facility]EL WILL EVALUATE PT FOR REHAB AND WILL CALL [facility]HR[facility] AT [facility] TO DETERMINE IF PT ACTUALLY NEEDS [facility] ASSESSMENT TO ENTER [facility]. CM WAITING ADMISSION DETERMINATION FROM [facility]. LANIE BETHEA, CASE MANAGEMENT
--- NOTE | 2016-10-29 09:08 | NUR ---
UPON GIVING PT AM MEDICAIONS, PT STATES "THE DOCTOR TOLD ME NOT TO TAKE ANYTHING UNLESS HE GIVES IT TO ME" I INFORMED PT THAT THE DOCTOR DID ORDER THESE MEDICAIONS FOR HER AND I AM HER NURSE. "PT STATES YOU ARE LYING". PT STATES " YOU ARE NOT MY NURSE, YOU ARE NOTHING". PT HAS HX OF DEMENTIA AND HAS BEEN DISORIENTED/CONFUSED ON SHIFT. I ATTEMPTED TO DO DAILY SHIFT ASSESSMENT PER POLICY AND WAS NOT ABLE TO FINISH SHIFT ASSESSMENT DUE TO PT REFUSING AND BEING COMBATIVE WITH ME. BED BOX ALARM IS ON AND ATTATCHED TO PT, BED IS IN LOW POSIITION, SIDE RAILS ARE UP X2, CALL LIGHT IS IN REACH, NON-SKID SOCKS ARE NOT ON DUE TO PT REFUSING WHEN TRYING TO PUT THEM ON. WILL CONTINUE TO MONITOR.
--- NOTE | 2016-10-29 10:53 | NUR ---
PT PLACED IN CONTACT ISOLATION PER GERMAN WITH INFECTION CONTROL FOR ESBL IN URINE.
[2016-10-29 12:00] VITALS: BP 132/39
--- NOTE | 2016-10-29 17:47 | NUR ---
1700- PT IS CURRENTLY SITTING UP IN BED WITH EYES OPEN. WHEN IN PTS ROOM PT STATES, "THERES A BOY OVER THERE TRYING TO JUMP OFF THE FRONT PORCH". PT IS CONFUSED. BED BOX ALARM IS ON, BED IS IN LOW POSITION, SIDE RAILS ARE UP X2, CALL LIGHT IS IN REACH, NON-SKID SOCKS ARE NOT ON DUE TO PT REFUSING THEM EARILER ON SHIFT. WILL CONTINUE TO MONITOR.
--- NOTE | 2016-10-29 20:43 | NUR ---
PT AWAKE, ALERT, COOPERATIVE, CONFUSED, MILDLY AGITATED AND UNABLE TO BE REORIENTED. PT CONTINUES TO TALK ABOUT HER FATHER IF SHE WERE A YOUNG GIRL. PT DID TAKE HER PO MEDICATIONS WITHOUT ANY DIFFICULTY. PT IS INCONTINENT OF BOWEL AND BLADDER, NENA CERVANTES HAS CHANGED PTS LINEN AND GOWN. PT DID BECOME SOMEWHAT DISGRUNTLED BY THE END. PT DENIES PAIN OR ANY NEEDS AT THIS TIME. CONTINUE TO MONITOR CLOSELY. BED LOW, CALL LIGHT IN REACH, SIDE RAILS X 2, HOB 30 DEGREES, BOX ALARM ATTACHED TO PT.
[2016-10-29 21:40] VITALS: BP 147/48
[2016-10-30 01:20] VITALS: BP 152/77
--- NOTE | 2016-10-30 03:05 | NUR ---
PT LYING IN BED, TALKING TO HERSELF, CONFUSED, DISORIENTED X 3. PT IS UNABLE TO ANSWER APPROPRIATELY TO SIMPLE QUESTIONS. CONTINUE TO MONITOR CLOSELY. BED LOW, CALL LIGHT IN REACH, SIDE RAILS X 2, HOB 30 DEGREES, BOX ALARM ATTACHED TO PT, ON AND FUNCTIONING PROPERLY.
[2016-10-30 05:04] LABS: BASOPHILS 0.2 % (0-2); EOSINOPHILS 2.6 % (0-7); HEMATOCRIT 28.7 % (36.0-48.0); HEMOGLOBIN 9.2 g/dL (12-16); IMMATURE GRANULOCYTES 0.2 % (0-5); LYMPHOCYTES 17.1 % (15-50); MCH 30.9 pg (26.0-34.0); MCHC 32.1 g/dL (31.0-37.0); MCV 96.3 fL (80.0-100.0); MEAN PLATELET VOLUME 11.5 fL (7.4-10.4); MONOCYTES 11.2 % (2-11); NEUTROPHILS 68.7 % (40-80); PLATELET COUNT 104 10x3/uL (130-400); RBC 2.98 10x6/uL (4.00-5.40); RDW 13.2 % (11.5-14.5); WBC 4.2 10x3/uL (4.8-10.8)
[2016-10-30 05:21] LABS: ANION GAP 7.9 mmol/L (8-16); CALCIUM 8.7 mg/dL (8.5-10.1); CARBON DIOXIDE 30.6 mmol/L (21.0-32.0); CREATININE - SERUM 1.6 mg/dL (0.6-1.3); POTASSIUM - SERUM 4.5 mmol/L (3.5-5.1)
[2016-10-30 05:43] VITALS: BP 98/58
--- NOTE | 2016-10-30 07:17 | NUR ---
PT IN BED RESTING. EVEN AND UNLABORED RESPIRATIONS NOTED. WILL CONTINUE TO MONITOR.
--- NOTE | 2016-10-30 08:33 | NUR ---
PT REFUSED ALL MEDICATION AT THIS TIME. I PUT MEDICATION IN TO PTs MOUTH SHE SPIT IT BACK OUT STATING "ITS TOO BITTER, AND I DONT WANT ANYMORE" I TRIED TO EXPLAIN THAT NOT ALL OF HER MEDICATIONS WOULD BE BITTER TO WHICH SHE STATED "I DONT CARE. I DONT WANT IT." PT ALSO REFUSED IV MEDICATION STATING "YOU ARENT HOOKING THAT UP TO ME. NOW GO AWAY" WILL CONTINUE TO MONITOR.
[2016-10-30 08:44] VITALS: BP 127/51
--- NOTE | 2016-10-30 10:00 | NUR ---
Nutrition Follow Up: Pt is eating <5% meal avg on a renal diet. She is receiving Ensure with meals. +BM 10/28/16. Meds noted. Labs reviewed. Rec changing diet to regular to encourage po intake. Rec consider an appetite stimulant. Will continue to provide selective menus and honor food preferences within diet ordered. RD following.
--- NOTE | 2016-10-30 13:29 | NUR ---
Patient Name: BASILIO PINEDO Encounter No: [id number] : 1930 Primary Insurance: MEDICARE A & B Anticipated DC Date: 10-28-2016 Planned Disposition: Nursing Facility [facility] Cert External Planned Provider: [facility], [facility] [employer] OPERATOR CARE MEDICAID BED DCP follow-up note: CM CALLED AND SPOKE TO KEISHA AT [facility], , PROVIDED UPDATE AND FAXED REFERRAL UPDATE TO [facility] AT [phone]. FOR RETURN TO [facility] AT DISCHARGE, NURSE REPORT TO BE CALLED TO [facility] AT [phone], FAX DISCHARGE INFORMATION TO [facility] AT [phone]. PT TO TRANSPORT VIA AMBULANCE. Complex Commercial Litigation Paralegal: Nicholas Santiago
[2016-10-30 19:00] VITALS: BP 164/55
--- NOTE | 2016-10-30 20:01 | NUR ---
PT LYING IN BED, RESTING COMFORTABLY AND QUIETLY AT THIS TIME. CONTINUE TO MONITOR CLOSELY. BED LOW, ALL LIGHT IN REACH, SIDE RAILS X 2, HOB 35 DEGREES. BOX ALARM ON, FUNCTIONING PROPERLY AND ATTACHED TO PT.
--- NOTE | 2016-10-30 20:52 | NUR ---
HAVE RETIMED MERREM, SHANNA PENA STATED PT DID REFUSE THIS AM'S DOSE @ 0900, BUT DID AGREE TO IT THIS AFTERNOON @ 9658.
[2016-10-31 04:00] VITALS: BP 151/73
--- NOTE | 2016-10-31 04:21 | NUR ---
PT RESTING QUIETLY, RESPIRATIONS EVEN AND UNLABORED. AUDIO PRODUCTION INSTRUCTOR'S LISBETH AND TAMMY REPORT THAT PT BECAME COMBATIVE DURING BED BATH, LINEN AND GOWN CHANGE. PT REMAINS DISORIENTED AND CONFUSED. CONTINUE TO MONITOR CLOSELY. BED LOW, CALL LIGHT IN REACH, SIDE RAILS X 2, HOB 30 DEGREES, BOX ALARM ON, FUNCTIONING PROPERLY AND ATTACHED TO PT.
[2016-10-31 04:23] LABS: BASOPHILS 0.5 % (0-2); EOSINOPHILS 3.8 % (0-7); HEMATOCRIT 28.8 % (36.0-48.0); HEMOGLOBIN 9.3 g/dL (12-16); IMMATURE GRANULOCYTES 0.5 % (0-5); LYMPHOCYTES 17.2 % (15-50); MCH 30.7 pg (26.0-34.0); MCHC 32.3 g/dL (31.0-37.0); MEAN PLATELET VOLUME 11.6 fL (7.4-10.4); PLATELET COUNT 100 10x3/uL (130-400); RBC 3.03 10x6/uL (4.00-5.40); RDW 13.4 % (11.5-14.5); WBC 4.2 10x3/uL (4.8-10.8)
[2016-10-31 04:43] LABS: ANION GAP 9.9 mmol/L (8-16); CALCIUM 8.7 mg/dL (8.5-10.1); CARBON DIOXIDE 29.4 mmol/L (21.0-32.0); CREATININE - SERUM 1.5 mg/dL (0.6-1.3); POTASSIUM - SERUM 4.3 mmol/L (3.5-5.1)
--- NOTE | 2016-10-31 07:10 | NUR ---
RECEIVED REPORT. ASSUMED CARE OF PATIENT. RESTING ON LEFT LATERAL SIDE WITH EYES CLOSED. EASILY AROUSED. RESP EVEN AND UNLABORED. ALERT BUT CONFUSED. IV FLUIDS IN FUSING AT KVO TO RIGHT FOREARM. REMAINS IN CONTACT ISOLATION. NO DISTRESS.
[2016-10-31 08:00] VITALS: BP 137/85
--- NOTE | 2016-10-31 09:30 | NUR ---
PATIENT CONSUMED ALL AM MEDS WITHOUT DIFFICULTY USING CHOCOLATE PUDDING. PATIENT CONSUMED ENTIRE CUP OF PUDDING AND 120CC FRESH H2O. NO DISTRESS. IV FLUIDS INFUSING AT KVO RATE AT THIS TIME.
[2016-10-31 12:00] VITALS: BP 105/37
--- NOTE | 2016-10-31 12:25 | NUR ---
PATIENT WITH EYES CLOSED. EASILY AROUSED. PATIENTS SISTER AT BEDSIDE AT THIS TIME. INCONTINENT CARE PROVIDED. NO DISTRESS.
[2016-10-31 16:00] VITALS: BP 154/49
--- NOTE | 2016-10-31 17:30 | NUR ---
INCONTINENT CARE PROVIDED. TURNED AND REPOSITIONED. CALL LIGHT WITHIN REACH. IV FLUIDS INFUSING AT KVO. NO DISTRESS.
[2016-10-31 19:00] VITALS: BP 146/62
[2016-11-01 04:00] VITALS: BP 108/55
--- NOTE | 2016-11-01 05:04 | NUR ---
PTS IV IN RT WRIST INFILTRATED, GENERALIZED EDEMA PRESENT, IV REMOVED WITH CATH TIP INTACT. PT HAS NEW 22G TO RT HAND, PT TOLERATED WELL. IV MERREM INFUSING ORDERED. CONTINUE TO MONITOR CLOSELY.
--- NOTE | 2016-11-01 06:16 | NUR ---
PT AWAKE, ALERT, CONFUSED, SWITCHES BETWEEN BEING COOPERATIVE TO COMBATIVE. BED CHANGED, GOWN CHANGED, PT IN NO ACUTE DISTRESS, MERREM STILL INFUSING. CONTINUE TO MONITOR CLOSELY.
[2016-11-01 06:27] LABS: BASOPHILS 0.2 % (0-2); EOSINOPHILS 4.5 % (0-7); HEMATOCRIT 26.7 % (36.0-48.0); HEMOGLOBIN 8.6 g/dL (12-16); IMMATURE GRANULOCYTES 0.2 % (0-5); LYMPHOCYTES 18.2 % (15-50); MCH 30.1 pg (26.0-34.0); MCHC 32.2 g/dL (31.0-37.0); MCV 93.4 fL (80.0-100.0); MEAN PLATELET VOLUME 11.4 fL (7.4-10.4); MONOCYTES 12.7 % (2-11); NEUTROPHILS 64.2 % (40-80); PLATELET COUNT 95 10x3/uL (130-400); RBC 2.86 10x6/uL (4.00-5.40); WBC 4.4 10x3/uL (4.8-10.8)
[2016-11-01 06:34] LABS: ANION GAP 11.3 mmol/L (8-16); CALCIUM 8.3 mg/dL (8.5-10.1); CARBON DIOXIDE 28.9 mmol/L (21.0-32.0); CREATININE - SERUM 1.3 mg/dL (0.6-1.3); POTASSIUM - SERUM 4.2 mmol/L (3.5-5.1)
[2016-11-01 06:51] LABS: PLATELET ESTIMATE DECREASED
--- NOTE | 2016-11-01 07:00 | NUR ---
RECEIVED REPORT. ASSUMED CARE OF PATIENT. CALL LIGHT WITHIN REACH. PATIENT WITH EYES OPEN, RUNNING HER FINGERS ACCROSS SEAMS OF SHEETS. DENIES PAIN. ALERT TO SELF ONLY. DENIES NEEDS AT THIS TIME. PATIENT IS COMPLETE ASSIST.
[2016-11-01 08:22] VITALS: BP 188/108
--- NOTE | 2016-11-01 09:50 | NUR ---
TOLERATED AM MEDS WELL WITH PUDDING . NO DISTRESS. CONSUMED ENTIRE PUDDING CUP AND 240 CC FRESH ICE WATER. CALL LIGHT WITHIN REACH.
[2016-11-01 12:10] VITALS: BP 160/61
--- NOTE | 2016-11-01 13:30 | NUR ---
RESTING WITH EYES CLOSED, EASILY AROUSED. IV FLUIDS INFUSING ORDERED. NO DISTRESS.
[2016-11-01 16:15] VITALS: BP 167/66
--- NOTE | 2016-11-01 16:30 | NUR ---
INCONTINENT CARE PROVIDED. NO DISTRESS. RESP EVEN AND UNLABORED.
--- NOTE | 2016-11-01 18:28 | NUR ---
RESTING WITH EYES CLOSED, EASILY AROUSED. NO DISTRESS. CALL LIGHT WITHIN REACH.
--- NOTE | 2016-11-01 20:14 | NUR ---
PT LYING IN BED QUIETLY, RESTING COMFORTABLY, CONTINUE TO MONITOR CLOSELY. BED LOW, CALL LIGHT IN REACH, SIDE RAILS X 2, HOB 35 DEGREES. BOX ALARM ON AND ATTACHED TO PT.
[2016-11-01 22:14] VITALS: BP 177/65
[2016-11-02 00:45] VITALS: BP 159/63
--- NOTE | 2016-11-02 02:09 | NUR ---
PT CRAWLING OUT OF BED, DISROBING, CONFUSED, DISORIENTED, HAS PULLED HER IV OUT TO RIGHT HAND. PT IS UNABLE TO BE REORIENTED AT THIS TIME. PT CLEANED, BED CHANGED, CLEAN GOWN PLACED ON PT, PT PULLED UP IN BED WITHOUT ANY DIFFICULTY. BOX ALARM ON, FUNCTIONING, AND ATTACHED TO PT. CONTINUE TO MONITOR CLOSELY. BED LOW, CALL LIGHT IN REACH, SIDE RAILS X 2, HOB 25-30 DEGREES, LEGS/FEET ELEVATED.
[2016-11-02 04:00] VITALS: BP 176/69
--- NOTE | 2016-11-02 06:03 | NUR ---
I SPOKE WITH DR. MCMAHON HE WAS ROUNDING THIS MORNING ABOUT PT'S REFUSAL TO HAVE AN IV RESITED. WE DISCUSSED THAT PT ALSO DOES NOT HAVE A URINARY CATHETER AT THIS TIME, SO THEREFORE HE DOES NOT WANT ONE PLACED PRIOR TO DISCHARGE. DR. MCMAHON ALSO STATED THAT WE NEED TO COLLECT A URINE CXL BEFORE PT IS DISCHARGED. PT IS CURRENTLY RESTING COMFORTABLY, CONTINUE TO MONITOR CLOSELY.
--- NOTE | 2016-11-02 07:10 | NUR ---
AM ROUND DONE WITH PATIENT LAYING ON LEFT SIDE APPEARING TO BE ASLEEP. RESP ARE EVEN AND NON LABORED. BOX ALARM IN USE. IN CONTACT ISOLATION. PATIENT IS DNR CODE STATUS PER REPORT. ON ROOM AIR. PER REPORT, PATIENT PULLED OUT IV AGAIN. WILL CPOC. CALL LIGHT IN USE.
[2016-11-02 08:00] VITALS: BP 184/53
--- NOTE | 2016-11-02 08:39 | NUR ---
PATIENT TO REFUSE AM MEDS AT THIS TIME, WILL NOT EAT BREAKFAST. WILL CONTINUE TO TRY.
--- NOTE | 2016-11-02 10:01 | NUR ---
Patient Name: BASILIO PINEDO Encounter No: [id number] : 1930 Primary Insurance: MEDICARE A & B Anticipated DC Date: 11-03-2016 Planned Disposition: Nursing Facility [facility] Cert External Planned Provider: [facility], PASSENGER BOOKING CLERK CARE MEDICAID BED DCP follow-up note: CM RECEIVED DISCHARGE PLANNING ORDER FOR TOMORROW. CM CALLED AND SPOKE TO KEISHA OF [facility], , WHO REPORTED THAT [facility] WILL ACCEPT PT BACK ONCE THE ANTIBIOTIC IS COMPLETED. CM FAXED UPDATE TO [facility] AT [phone]. CM CALLED LU[facility] SHAHIDA, ; CM ADVISED OF PLAN OF DISCHARGE BACK TO [address] TOMORROW, LUCI IN AGREEMENT WITH PLAN TO RETURN PT TO [facility], IMPORTANT MESSAGE FROM MEDICARE DISCUSSED, CM PREVIOUSLY PROVIDED PHONE NUMBER FOR MEDICARE QUALITY IMPROVEMENT OFFICE. FOR DISCHARGE, NURSE REPORT TO BE CALLED TO [facility], , FAX DISCHARGE INFORMATION TO [facility] AT [phone]. PT TO TRANSPORT VIA AMBULANCE. Tooling Inspector: Nicholas Santiago
--- NOTE | 2016-11-02 10:28 | NUR ---
IN AND OUT CATH DONE WITH ASSIST X 4. PATIENT IS CUSSING US AND TRYING TO HIT.
--- NOTE | 2016-11-02 11:10 | NUR ---
CAITLYN MELVI-SISTER CALLED TO CHECK ON HER. I WAS UNAVAILABLE TO SPEAK TO HER AND TRIED TO CALL HER BACK. LEFT MESSAGE TO PLEASE CALL ME AGAIN.
[2016-11-02 12:00] VITALS: BP 129/50
--- NOTE | 2016-11-02 12:08 | NUR ---
TRIED TO ENCOURAGE PATIENT TO EAT, REFUSES. STATES, "I JUST WANT TO SLEEP". I ASKED HER AGAIN IF I COULD START ANOTHER IV ON HER FOR HER MEDICATION AND SHE SAID, "NO".
--- NOTE | 2016-11-02 12:42 | NUR ---
Nutrition follow-up: Diet: Renal puree with thin liquids Pt continues to refuse meals. Labs reviewed Wt: 119# Pt is isolation at this time. Pt is now assessed with severe malnutrition of acute illness R/T UTI with advanced age AEB < 50% intake of estimated energy needs for > 5 days; noted reduced athletic agent strength. Pt would benefit from PEG tube vs NGT placement and supplemental nutrition support started. RDN following.
--- NOTE | 2016-11-02 15:39 | NUR ---
RESTING WITH EYES CLOSED. RESP ARE EVEN AND NON LABORED. AROUSES EASILY. NON COMBATIVE AT THIS TIME. ASKED PATIENT IF I COULD SITE HER IV FOR HER ANTIBIOTICS. SHE REPLIED, "NO".
[2016-11-02 16:00] VITALS: BP 128/54
--- NOTE | 2016-11-02 17:13 | NUR ---
AROUSED PATIENT FROM SLEEPING. I ASKED HER IF SHE WANTED TO EAT ANY SUPPER SHE HAS NOT EATEN ALL DAY OR TO DRINK ANYTHING. SHE SMILES AND REPLIED "NO, I'M NOT HUNGRY OR THIRSTY". WILL CONTINUE TO ENCOURAGE HER.
[2016-11-02 19:45] VITALS: BP 153/74
--- NOTE | 2016-11-02 21:43 | NUR ---
PT RESTING COMFORTABLY, CONFUSED, DISORIENTED, UNABLE TO ANSWER QUESTIONS APPROPRIATELY. CONTINUE TO MONITOR CLOSELY. BED LOW, CALL LIGHT IN REACH SIDE RAILS X 2, HOB 30 DEGREES. BOX ALARM ON, ATTACHED TO PT, AND FUNCTIONING PROPERLY.
[2016-11-03 01:25] VITALS: BP 183/79
--- NOTE | 2016-11-03 01:50 | NUR ---
ZORAN RIZO ATTEMPTED X 3 TO RESITE PTS IV. PT WAS COOPERATIVE FOR THE FIRST TWO ATTEMPTS, HOWEVER BECAME AGITATED DURING THE THIRD ATTEMPT AND THREATENED TO PULL IT OUT THEN REFUSED ANY MORE ATTEMPTS AND BEGAN TO BECOME AGITATED. PT CURRENTLY RESTING COMFORTABLY AT THIS TIME. WILL CONTINUE TO MONITOR CLOSELY.
[2016-11-03 05:02] VITALS: BP 153/57
[2016-11-03 05:02] LABS: BASOPHILS 0.7 % (0-2); EOSINOPHILS 4.9 % (0-7); HEMATOCRIT 26.9 % (36.0-48.0); HEMOGLOBIN 8.8 g/dL (12-16); IMMATURE GRANULOCYTES 0.7 % (0-5); LYMPHOCYTES 21.9 % (15-50); MCH 30.6 pg (26.0-34.0); MCHC 32.7 g/dL (31.0-37.0); MCV 93.4 fL (80.0-100.0); MEAN PLATELET VOLUME 10.9 fL (7.4-10.4); MONOCYTES 11.2 % (2-11); NEUTROPHILS 60.6 % (40-80); RBC 2.88 10x6/uL (4.00-5.40); WBC 4.5 10x3/uL (4.8-10.8)
[2016-11-03 05:04] LABS: PLATELET COUNT 127 10x3/uL (130-400)
[2016-11-03 05:10] LABS: ANION GAP 9.7 mmol/L (8-16); CARBON DIOXIDE 29.3 mmol/L (21.0-32.0); CREATININE - SERUM 1.3 mg/dL (0.6-1.3)
--- NOTE | 2016-11-03 07:57 | NUR ---
AM ROUNDING DONE WITH PATIENT IN CONTACT ISOLATION. APPEARS ASLEEP, RESP ARE EVEN AND NON LABORED. BOX ALARM IS ON AND IN USE CORRECTLY. PATIENT CODE STATUS IS DNR. PATIENT IS POSSIBLE DISCHARGE BACK TO [facility] TODAY. ON ROOM AIR. NO IV ASCCESS IS SEEN AT THIS TIME. WILL CPOC.
[2016-11-03 08:45] VITALS: BP 167/61
--- NOTE | 2016-11-03 09:50 | NUR ---
Patient Name: BASILIO PINEDO Encounter No: [id number] : 1930 Primary Insurance: MEDICARE A & B Anticipated DC Date: 11-03-2016 Planned Disposition: Nursing Facility [facility] Cert External Planned Provider: [facility], WORKERS COMPENSATION LEGAL SECRETARY CARE MEDICAID BED DCP follow-up note: CM RECEIVED DISCHARGE ORDER. CM CALLED AND LEFT MESSAGE FROM KEISHA OF [facility], , NOTIFYING OF PT'S DISCHARGE TODAY AND ANTICIPATED TRANSPORT VIA AMBULANCE. CM FAXED DISCHARGE INFORMATION TO [facility] AT [phone]. CM CALLED LUCIWilliam PINEDO, ; CM ADVISED OF PLAN OF DISCHARGE BACK TO [facility] TODAY; LUCI IN AGREEMENT WITH PLAN TO RETURN PT TO [facility]. NURSE REPORT TO BE CALLED TO [facility], , PT TO TRANSPORT VIA AMBULANCE. Senior Software Tester: Nicholas Santiago
--- NOTE | 2016-11-03 12:03 | NUR ---
PATIENT IS PLEASENT AT PRESENT TIME. GOT HER TO EAT 5 % OF LUNCH TRAY AND DRINK SOME ICE TEA.
--- NOTE | 2016-11-03 12:08 | NUR ---
CALLED REPORT TO SHANNA PICHARDO AT [facility]. SHE ASKED THAT WE WAIT APPROX. 30 MIN BEFORE WE CALL [facility]. WILL CPOC.
[2016-11-03 12:29] VITALS: BP 109/68
--- NOTE | 2016-11-03 12:41 | NUR ---
1235-[facility] AND SPOKE WITH [facility]" FOR [facility]SPORT. STATES THAT IT SHOULD BE SOON. PATIENT IS CLEANED UP FROM INCONT. OF STOOL. [facility] OFFERED AND ACCEPTED. BOX ALARM IS STILL ON. WILL CPOC WHILE AWAITING TRANSPORT.
--- NOTE | 2016-11-03 13:15 | NUR ---
[facility] CONSENT FOR DISHCARGE GIVEN TO PATIENT. DISCHARGED TO [facility] PER AMBULANCE.
== END 2016-11-03 13:23 | DRG 690 ==
LOC: D.ER 14:38 → D.M2 16:45
PROVIDERS: Emergency Medicine; Family Medicine; Physician Assistant Medical; ADMIT Family Medicine
DX: N10 Acute pyelonephritis (principal); D64.9 Anemia, unspecified; N17.9 Acute kidney failure, unspecified; I12.9 Hypertensive chronic kidney disease with stage 1 through stage 4 chronic kidney disease, or unspecified chronic kidney disease; N18.4 Chronic kidney disease, stage 4 (severe); Z66 Do not resuscitate; I25.10 Atherosclerotic heart disease of native coronary artery without angina pectoris; E78.5 Hyperlipidemia, unspecified; G30.9 Alzheimer's disease, unspecified; F02.80 Dementia in other diseases classified elsewhere, unspecified severity, without behavioral disturbance, psychotic disturbance, mood disturbance, and anxiety

== ENCOUNTER 2016-11-15 21:05 | Emergency (ER) | payer MEDICARE, OTHER, MEDICAID ==
[2016-10-26 12:47] VITALS: BMI 20.6
== END 2016-11-15 23:22 | disposition home or self-care (01) ==
LOC: D.ER 21:05
DX: M25.512 Pain in left shoulder (principal); M54.2 Cervicalgia; M25.552 Pain in left hip; W06.XXXA Fall from bed, initial encounter; Y93.89 Activity, other specified; Y92.129 Unspecified place in nursing home as the place of occurrence of the external cause; I50.9 Heart failure, unspecified; I25.10 Atherosclerotic heart disease of native coronary artery without angina pectoris; K21.9 Gastro-esophageal reflux disease without esophagitis; I10 Essential (primary) hypertension; F03.90 Unspecified dementia, unspecified severity, without behavioral disturbance, psychotic disturbance, mood disturbance, and anxiety

== ENCOUNTER 2016-12-05 16:11 | Emergency (ER) | payer MEDICARE, OTHER, MEDICAID ==
[2016-10-26 12:47] VITALS: BMI 20.6
[2016-12-05 16:59] LABS: BASOPHILS 0.3 % (0-2); EOSINOPHILS 4.3 % (0-7); HEMATOCRIT 28.7 % (36.0-48.0); HEMOGLOBIN 9.3 g/dL (12-16); IMMATURE GRANULOCYTES 0.3 % (0-5); LYMPHOCYTES 15.7 % (15-50); MCH 31.6 pg (26.0-34.0); MCHC 32.4 g/dL (31.0-37.0); MCV 97.6 fL (80.0-100.0); MEAN PLATELET VOLUME 11.5 fL (7.4-10.4); MONOCYTES 10.2 % (2-11); NEUTROPHILS 69.2 % (40-80); PLATELET COUNT 186 10x3/uL (130-400); RBC 2.94 10x6/uL (4.00-5.40); RDW 14.7 % (11.5-14.5); WBC 7.2 10x3/uL (4.8-10.8)
[2016-12-05 17:06] LABS: APTT 22.5 SECONDS (22.8-39.4); INR 0.88 (0.85-1.17); PROTIME 11.8 SECONDS (11.6-15.0)
[2016-12-05 17:19] LABS: ANION GAP 12.9 mmol/L (8-16); BILIRUBIN - TOTAL 0.29 mg/dL (0.2-1.3); CALCIUM 9.1 mg/dL (8.5-10.1); CARBON DIOXIDE 29.2 mmol/L (21.0-32.0); POTASSIUM - SERUM 5.1 mmol/L (3.5-5.1); PROTEIN - SERUM 6.8 g/dL (6.4-8.2)
[2016-12-05 17:33] LABS: APPEARANCE TURBID (CLEAR); COLOR YELLOW (YELLOW); LEUKOCYTE ESTERASE 2+ (NEGATIVE); SPECIFIC GRAVITY 1.015 (1.005-1.020)
[2016-12-05 17:34] LABS: BILIRUBIN NEGATIVE (NEGATIVE); GLUCOSE NEGATIVE (NEGATIVE); KETONE NEGATIVE (NEGATIVE); NITRITE NEGATIVE (NEGATIVE); PROTEIN TRACE mg/dL (NEGATIVE); UROBILINOGEN NORMAL (NORMAL)
[2016-12-05 17:43] LABS: BACTERIA MANY /hpf (NONE SEEN); EPITHELIAL CELLS 0-5 /hpf (0-5); RED CELLS - URINE 0-5 /hpf (0-5); WHITE CELLS - URINE >50 /hpf (0-5)
== END 2016-12-05 19:00 | disposition home or self-care (01) ==
LOC: D.ER 16:11
PROVIDERS: Emergency Medicine
DX: R79.89 Other specified abnormal findings of blood chemistry (principal); I12.9 Hypertensive chronic kidney disease with stage 1 through stage 4 chronic kidney disease, or unspecified chronic kidney disease; N18.9 Chronic kidney disease, unspecified; F03.90 Unspecified dementia, unspecified severity, without behavioral disturbance, psychotic disturbance, mood disturbance, and anxiety; D64.9 Anemia, unspecified; Z87.440 Personal history of urinary (tract) infections

== ENCOUNTER 2016-12-19 15:37 | Inpatient (IN) | payer MEDICARE, OTHER, MEDICAID ==
[~2016-12-19] VITALS: Ht 162.6 cm; Wt 63.9 kg
[2016-12-19 17:11] LABS: APPEARANCE HAZY (CLEAR); COLOR YELLOW (YELLOW); GLUCOSE NEGATIVE (NEGATIVE); KETONE NEGATIVE (NEGATIVE); LEUKOCYTE ESTERASE 2+ (NEGATIVE); NITRITE NEGATIVE (NEGATIVE); PROTEIN TRACE mg/dL (NEGATIVE); SPECIFIC GRAVITY 1.005 (1.005-1.020)
[2016-12-19 17:12] LABS: BILIRUBIN NEGATIVE (NEGATIVE); UROBILINOGEN NORMAL (NORMAL)
[2016-12-19 17:13] LABS: BACTERIA FEW /hpf (NONE SEEN); EPITHELIAL CELLS 0-5 /hpf (0-5); RED CELLS - URINE 0-5 /hpf (0-5); WHITE CELLS - URINE >50 /hpf (0-5)
[2016-12-19 17:24] LABS: BASOPHILS 0.3 % (0-2); EOSINOPHILS 3.8 % (0-7); HEMOGLOBIN 9.7 g/dL (12-16); IMMATURE GRANULOCYTES 0.3 % (0-5); LYMPHOCYTES 13.2 % (15-50); MCH 31.3 pg (26.0-34.0); MCHC 32.3 g/dL (31.0-37.0); MCV 96.8 fL (80.0-100.0); MEAN PLATELET VOLUME 10.9 fL (7.4-10.4); MONOCYTES 10.4 % (2-11); PLATELET COUNT 215 10x3/uL (130-400); RDW 15.1 % (11.5-14.5); WBC 7.7 10x3/uL (4.8-10.8)
[2016-12-19 17:42] LABS: ALBUMIN 3.6 g/dL (3.4-5.0); ANION GAP 12.9 mmol/L (8-16); BILIRUBIN - TOTAL 0.28 mg/dL (0.2-1.3); CREATININE - SERUM 2.7 mg/dL (0.6-1.3); POTASSIUM - SERUM 4.9 mmol/L (3.5-5.1); PROTEIN - SERUM 7.4 g/dL (6.4-8.2)
[2016-12-20 01:46] VITALS: BP 112/62; BMI 24.2
[2016-12-20 04:00] VITALS: BP 153/55
[2016-12-20 05:33] LABS: BASOPHILS 0.3 % (0-2); EOSINOPHILS 5.1 % (0-7); HEMATOCRIT 25.2 % (36.0-48.0); HEMOGLOBIN 8.3 g/dL (12-16); IMMATURE GRANULOCYTES 0.2 % (0-5); LYMPHOCYTES 15.1 % (15-50); MCH 31.8 pg (26.0-34.0); MCHC 32.9 g/dL (31.0-37.0); MCV 96.6 fL (80.0-100.0); MEAN PLATELET VOLUME 10.6 fL (7.4-10.4); MONOCYTES 11.4 % (2-11); NEUTROPHILS 67.9 % (40-80); PLATELET COUNT 180 10x3/uL (130-400); RBC 2.61 10x6/uL (4.00-5.40); WBC 5.9 10x3/uL (4.8-10.8)
[2016-12-20 05:45] LABS: ANION GAP 11.6 mmol/L (8-16); CALCIUM 9.3 mg/dL (8.5-10.1); CREATININE - SERUM 2.3 mg/dL (0.6-1.3); POTASSIUM - SERUM 4.6 mmol/L (3.5-5.1)
[2016-12-20 10:11] VITALS: BP 146/51
[2016-12-20 11:39] LABS: APPEARANCE TURBID (CLEAR); BILIRUBIN NEGATIVE (NEGATIVE); COLOR YELLOW (YELLOW); GLUCOSE NEGATIVE (NEGATIVE); KETONE NEGATIVE (NEGATIVE); LEUKOCYTE ESTERASE 2+ (NEGATIVE); NITRITE NEGATIVE (NEGATIVE); PROTEIN 3+ mg/dL (NEGATIVE); UROBILINOGEN NORMAL (NORMAL)
[2016-12-20 11:42] LABS: BACTERIA MANY /hpf (NONE SEEN); EPITHELIAL CELLS 0-5 /hpf (0-5); RED CELLS - URINE 25-50 /hpf (0-5); WHITE CELLS - URINE >50 /hpf (0-5)
[2016-12-20 11:43] LABS: AMORPHOUS SEDIMENT >1+ /lpf (NONE SEEN); CALCIUM OXALATE CRYSTALS 0-5 /hpf (NONE SEEN); GRANULAR CAST OCC /lpf (NONE SEEN); HYALINE CAST OCC /lpf (NONE SEEN); MUCUS <1+ /lpf (NONE SEEN)
[2016-12-20 12:43] VITALS: BP 132/64
--- NOTE | 2016-12-20 16:34 | NUR ---
ZORA- PATIENT' SISTER- CONTACT PHONE NUMBER [phone] AND [phone].
--- NOTE | 2016-12-20 19:35 | NUR ---
RECIEVED SHIFT REPORT. PT IS LYING IN BED. PT IS ORIENTED TO SELF ONLY AT THIS TIME. IV IS PATENT AND FLUIDS ARE RUNNING PER ORDER. PT REQUIRES ASSISTANCE TURNING IN BED FOR COMFORT AND SKIN CARE. PT DENIES ANY PAIN AT THIS TIME. PANTOJA IS DRAINING URINE BY GRAVITY. NO NEEDS ARE VERBALIZED AT THIS TIME. WILL CONTINUE TO MONITOR. SIDE RAILS ARE UP X 2. BED IS IN LOWEST POSITION. BED ALARM IS ON FOR SAFETY. CALL LIGHT IS WITHIN REACH.
[2016-12-20 20:00] VITALS: BP 170/65
--- NOTE | 2016-12-20 20:52 | NUR ---
SHIFT ASSESSMENT COMPLETED. NIGHT MEDS GIVEN WITH NO PROBLEMS. NO NEEDS ARE VOICED. WILL MONITOR. SIDE RAILS X 2. BED LOW. BED ALARM ON. CALL LIGHT IN REACH.
[2016-12-21] VITALS: BP 146/56
[2016-12-21 05:41] LABS: BASOPHILS 0.5 % (0-2); EOSINOPHILS 6.5 % (0-7); HEMATOCRIT 27.9 % (36.0-48.0); IMMATURE GRANULOCYTES 0.5 % (0-5); LYMPHOCYTES 22.3 % (15-50); MCH 31.7 pg (26.0-34.0); MCHC 32.3 g/dL (31.0-37.0); MCV 98.2 fL (80.0-100.0); MEAN PLATELET VOLUME 10.5 fL (7.4-10.4); MONOCYTES 12.5 % (2-11); NEUTROPHILS 57.7 % (40-80); PLATELET COUNT 176 10x3/uL (130-400); RBC 2.84 10x6/uL (4.00-5.40); RDW 14.9 % (11.5-14.5)
[2016-12-21 05:44] LABS: WBC 4.2 10x3/uL (4.8-10.8)
[2016-12-21 06:18] LABS: ANION GAP 13.3 mmol/L (8-16); CALCIUM 9.1 mg/dL (8.5-10.1); CARBON DIOXIDE 24.4 mmol/L (21.0-32.0); POTASSIUM - SERUM 4.7 mmol/L (3.5-5.1)
[2016-12-21 06:20] LABS: CREATININE - SERUM 1.7 mg/dL (0.6-1.3)
--- NOTE | 2016-12-21 06:58 | NUR ---
REPORT RECIEVED, ASSUMED CARE OF PT. RESTING WITH EYES SHUT, EASILY AROUSED, NO NEEDS VOICED AT THIS TIME. BED ALARM ON. BED IN LOWEST POSITION, SIDE RAILS UP X 2, CALL LIGHT WITHIN REACH.
[2016-12-21 15:24] VITALS: Ht 162.6 cm; Wt 63.9 kg
--- NOTE | 2016-12-21 16:01 | NUR ---
PANTOJA CATHETER CHANGED PER ORDER FROM DR. MCMAHON. ENTIRE CONTENTS OF KIT USED. PT TOLERATED WITH MINIMAL DISCOMFORT. PATENT, URINE DRAINING.
--- NOTE | 2016-12-21 19:25 | NUR ---
RECIEVED SHIFT REPORT. PT IS LYING IN BED. PT IS ORIENTED TO SELF ONLY AT THIS TIME. PT REQUIRES ASSISTANCE TURNING IN BED FOR COMFORT AND SKIN CARE. PANTOJA IS DRAINING URINE BY GRAVITY. PT DENIES ANY PAIN AT THIS TIME. NO NEEDS ARE VERBALIZED AT THIS TIME. WILL CONTINUE TO MONITOR. SIDE RAILS ARE UP X 2. BED IS IN LOWEST POSITION. BED ALARM IS ON FOR SAFETY. CALL LIGHT IS WITHIN REACH.
[2016-12-21 19:57] VITALS: BP 142/86
[2016-12-22 00:11] VITALS: BP 106/47
[2016-12-22 04:00] VITALS: BP 148/51
[2016-12-22 04:34] LABS: BASOPHILS 0.5 % (0-2); EOSINOPHILS 4.7 % (0-7); HEMATOCRIT 27.8 % (36.0-48.0); HEMOGLOBIN 9.1 g/dL (12-16); IMMATURE GRANULOCYTES 0.2 % (0-5); LYMPHOCYTES 25.1 % (15-50); MCHC 32.7 g/dL (31.0-37.0); MCV 97.9 fL (80.0-100.0); MEAN PLATELET VOLUME 10.1 fL (7.4-10.4); MONOCYTES 12.3 % (2-11); NEUTROPHILS 57.2 % (40-80); PLATELET COUNT 171 10x3/uL (130-400); RBC 2.84 10x6/uL (4.00-5.40); RDW 14.5 % (11.5-14.5); WBC 4.1 10x3/uL (4.8-10.8)
[2016-12-22 04:44] LABS: ANION GAP 10.2 mmol/L (8-16); CALCIUM 8.9 mg/dL (8.5-10.1); CARBON DIOXIDE 25.9 mmol/L (21.0-32.0); CREATININE - SERUM 1.5 mg/dL (0.6-1.3); POTASSIUM - SERUM 4.1 mmol/L (3.5-5.1)
--- NOTE | 2016-12-22 07:05 | NUR ---
RECIEVED REPORT, ASSUMED CARE OF PT. CONTACT ISOLATION IN PLACE. PT RESTING WITH EYES SHUT, EASILY AROUSED. BED ALARM ON. PANTOJA CATHETER IN PLACE, SECURED WITH STAT-LOCK. R WRIST IV INFUSING ORDERED, RUFINO C/D/I. NO COMPLAINTS AT THIS TIME. BED IN LOWEST POSITION, SIDE RAILS UP X 2, CALL LIGHT WITHIN REACH.
[2016-12-22 09:07] VITALS: BP 154/59
--- NOTE | 2016-12-22 09:43 | NUR ---
Patient Name: BASILIO PINEDO Admission Status: ER Accout number: [id number] Admission Date: 12-19-2016 : 1930 Admission Diagnosis:URINARY TRACT INFECTION, SITE NOT SPECIFIED Attending: Ajay Purdy Current LOS: 3 Anticipated DC Date: 12-24-2016 Planned Disposition: Nursing Facility [facility] Cert Primary Insurance: MEDICARE A & B Discharge Planning Comments: PATIENT CALLED SISTER (CAITLYN) WITH PLANS AND NEEDS FOR DISCHARGE. PATIENT IS A RESIDENT OF [facility] FOR AROUND 3 YEARS AND WILL RETURN THERE AT DISCHARGE. PATIENT IS BEDRIDDEN AT FACILITY. PATIENTS PCP IS DR. GARCIA AND PHARMACY IS IN HOUSE. CM WILL CONTINUE TO FOLLOW PATIENT WITH D/C NEEDS AND PLANS. PCP DR. GARCIA IN HOUSE PHARMACY ([facility]) CAITLYN (SISTER) [phone] [place]: Brianne Marie Is the patient Alert and Oriented? No 0 * How many steps to enter\exit or inside your home? 0 0 * PCP DR. GARCIA 0 * Pharmacy IN HOUSE AT [facility] 0 * Preadmission Environment [employer] [facility] 0 * Facility Name [facility] 0 * ADLs Total Dependent 0 * Other Equipment PATIENT IS BEDRIDDEN 0 * List name and contact numbers for known caregivers / representatives who currently or will assist patient after discharge: CAITLYN (SISTER) [phone] 0 * Community resources currently utilized None 0 * Additional services required to return to the preadmission environment? Yes 0 * Can the patient safely return to the preadmission environment? Yes 0 * Has this patient been hospitalized within the prior 30 days at any hospital? No 0 Grand Total: 0
[2016-12-22 12:31] VITALS: BP 123/46
--- NOTE | 2016-12-22 19:30 | NUR ---
RECIEVED SHIFT REPORT. PT IS ORIENTED TO SELF ONLY. IV IS PATENT AND FLUIDS ARE RUNNING PER ORDER. PANTOJA IS DRAINING URINE BY GRAVITY. PT REQUIRES ASSISTANCE TURNING IN BED FOR COMFORT AND SKIN CARE. PT DENIES ANY PAIN AT THIS TIME. NO NEEDS ARE VERBALIZED AT THIS TIME. WILL CONTINUE TO MONITOR. SIDE RAILS ARE UP X 2. BED IS IN LOWEST POSITION. BED ALARM IS ON FOR SAFETY. CALL LIGHT IS WITHIN REACH.
[2016-12-22 20:00] VITALS: BP 126/54
[2016-12-23] VITALS: BP 133/51
[2016-12-23 04:00] VITALS: BP 132/50
[2016-12-23 05:09] LABS: BASOPHILS 0.7 % (0-2); EOSINOPHILS 5.8 % (0-7); HEMATOCRIT 26.7 % (36.0-48.0); HEMOGLOBIN 8.7 g/dL (12-16); IMMATURE GRANULOCYTES 0.5 % (0-5); LYMPHOCYTES 26.2 % (15-50); MCH 31.8 pg (26.0-34.0); MCHC 32.6 g/dL (31.0-37.0); MCV 97.4 fL (80.0-100.0); MEAN PLATELET VOLUME 10.3 fL (7.4-10.4); MONOCYTES 12.3 % (2-11); NEUTROPHILS 54.5 % (40-80); PLATELET COUNT 171 10x3/uL (130-400); RBC 2.74 10x6/uL (4.00-5.40); RDW 14.4 % (11.5-14.5); WBC 4.1 10x3/uL (4.8-10.8)
[2016-12-23 05:37] LABS: ANION GAP 10.6 mmol/L (8-16); CALCIUM 8.9 mg/dL (8.5-10.1); CARBON DIOXIDE 27.4 mmol/L (21.0-32.0); CREATININE - SERUM 1.5 mg/dL (0.6-1.3)
--- NOTE | 2016-12-23 07:00 | NUR ---
RECIEVED REPORT, ASSUMED CARE OF PT. RESTING IN BED WITH EYES SHUT, NO COMPLAINTS AT THIS TIME. NO SIGNS OF ACUTE DISTRESS.
[2016-12-23 08:26] VITALS: BP 157/53
[2016-12-23] MEDS ORDERED: MACROBID100 MG PO (11:33)
[2016-12-23] MEDS ORDERED: MERREM 500 MG/500 MG IV (11:34)
[2016-12-23 11:51] VITALS: BP 178/76
--- NOTE | 2016-12-23 15:26 | NUR ---
ANISHA REASSESSMENT NOTE: PATIENT IS DISCHARGING BACK TO [facility] TODAY. JOHN APPROVED. PATIENT WILL BE PICKED UP BY FACILITY VAN TO A JAIL BED AFTER ANTIBIOTIC GIVEN THIS AFTERNOON. ANISHA SPOKE WITH PASCALE (NURSE) AND SHE WILL CALL REPORT ONCE ANTIBIOTIC IS GIVEN AND HAVE PATIENT READY FOR VETERINARY PRACTICE MANAGER.
[2016-12-23 16:04] VITALS: BP 143/55
--- NOTE | 2016-12-23 17:25 | NUR ---
TRIED TO CALL REPORT TO [facility] FOR DISCHARGE, NO ANSWER. WILL TRY AGAIN.
--- NOTE | 2016-12-23 17:41 | NUR ---
DISCHARGE INSTRUCTIONS GIVEN TO PT. UNABLE TO SIGN FOR HERSELF.
--- NOTE | 2016-12-23 17:41 | NUR ---
REPORT CALLED TO [facility] LPN. STATED THEY WILL BE HERE TO PICK THE PT UP AROUND 7,
--- NOTE | 2016-12-23 18:44 | NUR ---
CHARISMA TO DO BLADDER TRAINING AND D/C CATHETER, REPORTED TO SHANNA JARA.
== END 2016-12-23 20:09 | DRG 690 ==
LOC: D.ER 15:37 → D.MS 19:44
PROVIDERS: Emergency Medicine; Family Medicine; Physician Assistant Medical; ADMIT Family Medicine
DX: N39.0 Urinary tract infection, site not specified (principal); N18.4 Chronic kidney disease, stage 4 (severe); I12.9 Hypertensive chronic kidney disease with stage 1 through stage 4 chronic kidney disease, or unspecified chronic kidney disease; G30.9 Alzheimer's disease, unspecified; F02.80 Dementia in other diseases classified elsewhere, unspecified severity, without behavioral disturbance, psychotic disturbance, mood disturbance, and anxiety; D64.9 Anemia, unspecified